=== PATIENT | female | born 1960 ===

== ENCOUNTER 2024-10-26 14:57 | Outpatient (AMB) | payer MEDICARE, SELFPAY | END 2024-10-26 15:05 | disposition home or self-care (01) | LOC: HO.HMGAL 14:57 | PROVIDERS: PCP Internal Medicine; Visit Provider Registered Nurse Emergency | DX: J30.89 Other allergic rhinitis (principal) | CPT/HCPCS: 95117; 95165 ==

== ENCOUNTER 2024-12-13 10:50 | Outpatient (AMB) | payer MEDICARE, SELFPAY | END 2024-12-13 11:02 | disposition home or self-care (01) | LOC: HO.HMGAL 10:50 | PROVIDERS: PCP Internal Medicine; Visit Provider Registered Nurse Emergency | DX: J30.89 Other allergic rhinitis (principal) | CPT/HCPCS: 95117; 95165 ==

== ENCOUNTER 2025-01-17 09:08 | Outpatient (AMB) | payer MEDICARE, SELFPAY ==
--- OUTSIDE RECORDS SUMMARY | 2025-01-13 23:59 | XMS_ITS | Continuity of Care Document ---
Author Organization [facility] Address [address] [place] [address] [address] [place] [address]- Care Team Providers Care Bellman Driver Name Role Phone Verónica DELGADO, Manpreet Osborne Primary Care Physician Encounter [facility] [place] Date(s): 10/14/24 - 01/13/[address] [place], [place] [address] Attending Physician: Myrna Box NP Encounter Type: Pre Office Visit Allergies, Adverse Reactions, Alerts Substance Criticality Severity Reaction Reaction Severity Status nitrofurantoin vomiting , diarrhea Active Medications amlodipine-benazepril 5 mg-20 mg oral capsule 1 capsule, By Mouth, Daily in AM, 0 Refills, Maintenance, 12/31/24 2:41:00 PM EDT, Partial fill upon patient request if the prescription is for a schedule II opioid drug. Start Date: 12/31/24 Status: Ordered Medication Dispense Status: Completed Total Allowed Fills: 1 Fills Dispensed: 0 atorvastatin 40 mg oral tablet 1 tablet = 40 mg, By Mouth, Daily at bedtime, 0 Refills, Maintenance, 11/28/22 6:19:00 AM EDT, Partial fill upon patient request if the prescription is for a schedule II opioid drug. Start Date: 11/28/22 Status: Ordered Medication Dispense Status: Completed Total Allowed Fills: 1 Fills Dispensed: 0 Calcium And Vitamin D Combination By Mouth, Daily, 0 Refills, Maintenance, 12/27/19 7:34:00 AM EDT Start Date: 12/27/19 Status: Ordered Medication Dispense Status: Completed Total Allowed Fills: 1 Fills Dispensed: 0 Coque 10 Coque 10, Refills 0, Maintenance, 12/27/19 7:35:00 AM EDT, Supply Start Date: 12/27/19 Status: Ordered Medication Dispense Status: Completed Total Allowed Fills: 1 Fills Dispensed: 0 D3 25 mcg (1000 intl units) oral capsule 1 capsule = 25 mcg, By Mouth, Daily, 0 Refills, Maintenance, 12/31/24 2:43:00 PM EDT, Partial fill upon patient request if the prescription is for a schedule II opioid drug. Start Date: 12/31/24 Status: Ordered Medication Dispense Status: Completed Total Allowed Fills: 1 Fills Dispensed: 0 levothyroxine 0.025 mg oral tablet 1 tablet = 25 mcg, By Mouth, Daily, # 90 tablet, 3 Refills, Maintenance, 02/16/24 8:25:00 AM EST, [facility]/pharmacy #[id number], 148.7, cm, 07/17/23 8:13:00 EDT, Height, 58.6, kg, 01/10/23 19:37:00 EDT, Dry Weight Start Date: 02/16/24 Status: Ordered Medication Dispense Status: Completed Quantity: 90.0 Unit: tablet Total Allowed Fills: 4 Fills Dispensed: 0 Probiotic Formula By Mouth, Daily, 0 Refills, Maintenance, 12/27/19 7:34:00 AM EDT Start Date: 12/27/19 Status: Ordered Medication Dispense Status: Completed Total Allowed Fills: 1 Fills Dispensed: 0 Social History Social History Type Response Sexual Gender identity: Fem rose. Preferred pronoun: She/Her/Hers. Smoking Status Former smoker, quit more than 30 days ago; Type: Cigarettes; Other: Quit 33 years ago; Number of years: 12; entered on: 09/27/21 Sex Sex Representation Female (finding) Patient Care team information Care Team Personnel Name: Joya Brothers RN Position: S RN Member Role: Primary Care Nurse Name: Cynthia Basilio RN Position: [facility] RN Member Role: Primary Care Nurse Name: Manpreet Sanches MD Position: S Outreach Member Role: PCP Address: [address] Telecom: Name: Mayra Nielsen RN Position: [facility] RN Member Role: Primary Care Nurse Name: Nona Lindquist RN Position: [facility] RN Member Role: Primary Care Nurse Name: Marianne Rivera RN Position: [facility] RN Member Role: Primary Care Nurse Name: Emiliana Castillo RN Position: [facility] RN Member Role: Primary Care Nurse Name: Cristiano Waller RN Position: [facility] RN Member Role: Primary Care Nurse Name: Pat Lanier RN Position: [facility] ED RN W/OE and Tasks Member Role: Primary Care Nurse Care Team Related Persons Name: JOHN JOHNSON Name: ABRAN MITCHELL Insurance Providers Guarantor name: PETERSON MITCHELL Health Plan Information #: 1 Payer: MEDICARE B Payer Identifier: Member Number: [id number] Group Number: Subscriber Identifier: [id number] Relationship to Subscriber: self Coverage Type: NA Coverage Verification Date: NA Telecom: NA Address: Health Plan Information #: 2 Payer: [employer] SECONDARY ONLY Payer Identifier: NA Member Number: [id number] Group Number: [id number] Subscriber Identifier: Relationship to Subscriber: self Coverage Type: Medicare Other Coverage Verification Date: Telecom: Address:
--- OUTSIDE RECORDS SUMMARY | 2025-01-17 09:51 | XMS_ITS | Data Portability ---
Author Organization [facility], Main Office Address [address] [place] [address] Care Team Providers Care Lift Team Technician Name Role Phone LUCY SANCHES Primary Care Provider SARA WHITMAN Senior Mechanical Technician ZAHEER LUNDBERG Soil Sampler [phone] LAURA TODD Cornetist [facility] Portable Irrigation Operator [phone] HANNAH DICKENS Referring Provider [phone] [facility] (ALLREFERRALS) Orthopedic Surgeon CRYSTAL BUSH Referring Provider [phone] LEXY WELSH Referring Provider [phone] Assessment Encounter Date Assessment Date Assessment LastModified by Organization Details LastModified Time 01/13/2024 01/13/2024 She gets recurrent sty's on the lower lid of her left eye. They resolve on their own with warm compresses. She will bring this up to her eye doctor next time she sees him. amy Not available 01/13/2024 12:59:36 Plan of Treatment Reminders Order Date Submit Date Provider Last Modified By Organization Details Last Modified Time Details Appointments FOLL OW UP 2025 10:30A M Lucy justice MD Not available Not available Not available Lab PT/P TTshavon ma 2024 025 [facility] (Centralized Electronic Ordering - All Locations), Patient Can Go To The Location Of Their Choice, [id number] 12/30/2024 08:08:22 cristin bain, octavio dobbins 2024 [facility] (Centralized Electronic Ordering - All Locations), Patient Can Go To The Location Of Their Choice, 12/30/2024 08:08:22 CBC w/ auto diff 2024 025 [facility] (Centralized Electronic Ordering - All Locations), Patient Can Go To The Location Of Their Choice, 12/30/2024 08:08:21 CMP, seru m or plas ma 2024 025 [facility] (Centralized Electronic Ordering - All Locations), Patient Can Go To The Location Of Their Choice, 12/30/2024 08:08:21 TSH + free T4, seru m 2023 024 [facility] (Centralized Electronic Ordering - All Locations), Patient Can Go To The Location Of Their Choice, 01/13/2024 12:56:19 lipi d nathaniel l, seru m 2023 024 [facility] (Centralized Electronic Ordering - All Locations), Patient Can Go To The Location Of Their Choice, 08/06/2023 06:08:08 CMP, seru m or plas ma 2023 024 [facility] (Centralized Electronic Ordering - All Locations), Patient Can Go To The Location Of Their Choice, 08/06/2023 06:08:08 CBC w/ auto diff 2023 024 [facility] (Centralized Electronic Ordering - All Locations), Patient Can Go To The Location Of Their Choice, 08/06/2023 06:08:07 Referral vasc ular surg ayan refe rral - Bila mesha l vari cose vein s 2024 [facility], [address] [facility] [address], [place], [address], 12/29/2024 11:44:[address] refe rral - Need s colo n canc er scre enin g 2024 025 [email or web address] [facility], [address], [place], [address], 12/31/2024 11:15:34 colo n & rect al surg ayan refe rral 2024 025 [email or web address] Maria G Manzo MD, [address] [place] [address] , [place] [address], [place], [address], 10/04/2024 10:42:19 Procedures colo nosc opy scre enin g (PRO C) 2024 025 [email or web address] In-Office Order, Internal Use Only DO Not Attach Compendium DO Not Attach Compendium, Do Not Delete/merge, [id number] 12/28/2024 16:16:04 Surgeries None hema rded . Imaging elec troc ardi ogra m 2022 023 [email or web address] In-Office Order, Internal Use Only DO Not Attach Compendium DO Not Attach Compendium, Do Not Delete/merge, [id number] 01/28/2023 11:24:31 Medication Orders amlo dipi ne 5 mg-b enaz epri l 20 mg caps ule 2024 025 [id number], [address], [place], [address], 12/28/2024 17:51:43 hydr ocor tiso ne 2.5 % topi tera crea m with donavan ligia appl icat or 2024 025 [id number], [address], [place], [address], 12/28/2024 15:20:12 amlo dipi ne 5 mg-b enaz epri l 10 mg caps ule 2022 023 [email or web address] [id number], [address], [place], [address], 12/28/2024 17:45:58 ator vast atin 40 mg tabl et 2022 023 [id number], [address], [place], [address], 01/28/2023 12:26:32 Patient TargetsNo targets recorded. Patient Instructions Encounter Date Encounter Id Patient Instructions Last Modified By Organization Details Last Modified Time 01/28/2023 [id number] high blood pressure: care instructions [email or web address] Not available 01/28/2023 11:07:57 learning about high blood pressure [email or web address] Not available 01/28/2023 11:07:57 07/31/2023 [id number] high blood pressure: care instructions [email or web address] Not available 07/31/2023 10:40:23 learning about high blood pressure [email or web address] Not available 07/31/2023 10:40:23 high cholesterol: care instructions [email or web address] Not available 07/31/2023 10:40:23 preventing falls: care instructions [email or web address] Not available 07/31/2023 10:33:04 well visit, over 65: care instructions [email or web address] Not available 07/31/2023 10:33:04 01/13/2024 [id number] high blood pressure: care instructions [email or web address] Not available 01/13/2024 11:00:53 learning about high blood pressure [email or web address] Not available 01/13/2024 11:00:53 high cholesterol: care instructions [email or web address] Not available 01/13/2024 11:00:53 09/21/2024 [id number] hemorrhoids: care instructions pmadden Not available 09/21/2024 09:53:54 Patient will follow up and keep appointment as scheduled. [email or web address] Not available 09/21/2024 09:56:29 12/28/2024 [id number] hypercalcemia: care instructions [email or web address] Not available 12/28/2024 15:45:58 preventing falls: care instructions acennerazzo Not available 12/28/2024 15:45:58 well visit, over 65: care instructions acennerazzo Not available 12/28/2024 15:45:58 high cholesterol: care instructions acennerazzo Not available 12/28/2024 15:45:58 varicose veins: care instructions acennerazzo Not available 12/28/2024 16:06:37 hearing loss: care instructions acennerazzo Not available 12/28/2024 15:45:58 learning about colon cancer acennerazzo Not available 12/28/2024 15:57:36 high blood pressure: care instructions [email or web address] Not available 12/28/2024 15:45:58 learning about high blood pressure acennerazzo Not available 12/28/2024 15:45:58 Reason for Referral Colon & Rectal Surgeon Refer ral for Internal hemorrhoids Referring Physician: Holden Moreira, Internal Medicine, Encounter Date: 09/21/2024 Senior Mechanical Technician Referral for Screening for malignant neoplasm of colon Needs colon cancer screening Referring Physician: Lucy Sanches [facility], Encounter Date: 12/28/2024 Vascular Surgeon Referral fo r Varicose veins of lower extremity Bilateral varicose veins Referring Physician: Lucy Sanches [facility], Encounter Date: 12/28/2024 Results Created Date Observation Date Name Description Value Unit Range Abnormal Flag Note LastModifiedBy Organization Detail LastModifiedTime 08/05/19 24 08/05/2023 CBC WITH DIFFE RENTI AL/PL ATELE T WBC 7.5 x10e3 /uL 3.4-10 .8 Not Available [facility] ([facility]) [address] [place], [address], 08/06/2023 06:08:07 08/05/19 24 08/05/2023 CBC WITH DIFFE RENTI AL/PL ATELE T RBC 4.58 x10e6 /uL 3.77-5 .28 Not Available [facility] ([facility]) [address] [place], [address], 08/06/2023 06:08:07 08/05/19 24 08/05/2023 CBC WITH DIFFE RENTI AL/PL ATELE T hemoglobin 12.5 g/dL 11.1-1 5.9 Not Available [facility] ([facility]) [address] [facility], [place], [address], 08/06/2023 06:08:07 08/05/19 24 08/05/2023 CBC WITH DIFFE RENTI AL/PL ATELE T hematocrit 40.7 % 34.0-4 6.6 Not Available [facility] ([facility]) [address] [facility], [place], [address], 08/06/2023 06:08:07 08/05/19 24 08/05/2023 CBC WITH DIFFE RENTI AL/PL ATELE T MCV 89 fL 79-97 Not Available [facility] ([facility]) [address] [facility], [place], [address], 08/06/2023 06:08:07 08/05/19 24 08/05/2023 CBC WITH DIFFE RENTI AL/PL ATELE T MCH 27.3 pg 26.6-3 3.0 Not Available [facility] ([facility]) [address] [facility], [place], [address], 08/06/2023 06:08:07 08/05/19 24 08/05/2023 CBC WITH DIFFE RENTI AL/PL ATELE T MCHC 30.7 g/dL 31.5-3 5.7 below low normal Not Available [facility] ([facility]) [address] [facility], [place], [address], 08/06/2023 06:08:07 08/05/19 24 08/05/2023 CBC WITH DIFFE RENTI AL/PL ATELE T RDW 13.8 % 11.7-1 5.4 Not Available [facility] ([facility]) [address] [facility], [place], [address], 08/06/2023 06:08:07 08/05/19 24 08/05/2023 CBC WITH DIFFE RENTI AL/PL ATELE T platelets 223 x10e3 /uL 150-45 0 Not Available [facility] ([facility]) [address], [place], [address], 08/06/2023 06:08:07 08/05/19 24 08/05/2023 CBC WITH DIFFE RENTI AL/PL ATELE T neutrophils 54 % not estab. Not Available [facility] ([facility]) [address] [facility], [place], [address], 08/06/2023 06:08:07 08/05/19 24 08/05/2023 CBC WITH DIFFE RENTI AL/PL ATELE T lymphs 37 % not estab. Not Available [facility] ([facility]) [address] [facility], [place], [address], 08/06/2023 06:08:07 08/05/19 24 08/05/2023 CBC WITH DIFFE RENTI AL/PL ATELE T monocytes 6 % not estab. Not Available [facility] ([facility]) [address] [facility], [place], [address], 08/06/2023 06:08:07 08/05/19 24 08/05/2023 CBC WITH DIFFE RENTI AL/PL ATELE T eos 2 % not estab. Not Available [facility] ([facility]) [address] [facility], [place], [address], 08/06/2023 06:08:07 08/05/19 24 08/05/2023 CBC WITH DIFFE RENTI AL/PL ATELE T basos 1 % not estab. Not Available [facility] ([facility]) [address] [facility], [place], [address], 08/06/2023 06:08:07 08/05/19 24 08/05/2023 CBC WITH DIFFE RENTI AL/PL ATELE T immature cells NON CLINICAL ADVISOR Not Available [facility] ([facility]) [address] [facility], [place], [address], 08/06/2023 06:08:07 08/05/19 24 08/05/2023 CBC WITH DIFFE RENTI AL/PL ATELE T neutrophils (absolute) 4.0 x10e3 /uL 1.4-7. 0 Not Available [facility] ([facility]) [address] [facility], [place], [address], 08/06/2023 06:08:07 08/05/19 24 08/05/2023 CBC WITH DIFFE RENTI AL/PL ATELE T lymphs (absolute) 2.8 x10e3 /uL 0.7-3. 1 Not Available [facility] ([facility]) [address] [facility], [place], [address], 08/06/2023 06:08:07 08/05/19 24 08/05/2023 CBC WITH DIFFE RENTI AL/PL ATELE T monocytes(ab solute) 0.5 x10e3 /uL 0.1-0. 9 Not Available [facility] ([facility]) [address] [facility], [place], [address], 08/06/2023 06:08:07 08/05/19 24 08/05/2023 CBC WITH DIFFE RENTI AL/PL ATELE T eos (absolute) 0.1 x10e3 /uL 0.0-0. 4 Not Available [facility] ([facility]) [address] [facility], [place], [address], 08/06/2023 06:08:07 08/05/19 24 08/05/2023 CBC WITH DIFFE RENTI AL/PL ATELE T baso (absolute) 0.1 x10e3 /uL 0.0-0. 2 Not Available [facility] ([facility]) [address] [place], [address], 08/06/2023 06:08:07 08/05/19 24 08/05/2023 CBC WITH DIFFE RENTI AL/PL ATELE T immature granulocytes 0 % not estab. Not Available [facility] ([facility]) [address] [place], [address], 08/06/2023 06:08:07 08/05/19 24 08/05/2023 CBC WITH DIFFE RENTI AL/PL ATELE T immature grans (abs) 0.0 x10e3 /uL 0.0-0. 1 Not Available [facility] ([facility]) [address] [facility], [place], [address], 08/06/2023 06:08:07 08/05/19 24 08/05/2023 CBC WITH DIFFE RENTI AL/PL ATELE T NRBC NON CLINICAL ADVISOR Not Available [facility] ([facility]) [address] [facility], [place], [address], 08/06/2023 06:08:07 08/05/19 24 08/05/2023 CBC WITH DIFFE RENTI AL/PL ATELE T hematology comments: NON CLINICAL ADVISOR Not Available [facility] ([facility]) [address] [facility], [place], [address], 08/06/2023 06:08:07 08/05/19 24 08/05/2023 COMP. METAB OLIC PANEL (14) glucose 92 mg/dL 70-99 Not Available [facility] ([facility]) [address] [facility], [place], [address], 08/06/2023 06:08:08 08/05/19 24 08/05/2023 COMP. METAB OLIC PANEL (14) BUN 15 mg/dL 8-27 Not Available [facility] ([facility]) [address] [facility], [place], [address], 08/06/2023 06:08:08 08/05/19 24 08/05/2023 COMP. METAB OLIC PANEL (14) creatinine 0.81 mg/dL 0.57-1 .00 Not Available [facility] ([facility]) [address] [facility], [place], [address], 08/06/2023 06:08:08 08/05/19 24 08/05/2023 COMP. METAB OLIC PANEL (14) eGFR 81 mL/mi n/1.7 3 >59 Not Available [facility] ([facility]) [address] [facility] [place], [address], 08/06/2023 06:08:08 08/05/19 24 08/05/2023 COMP. METAB OLIC PANEL (14) BUN/creatini ne ratio 19 - Not Available [facility] ([facility]) [address] [facility] [place], [address], 08/06/2023 06:08:08 08/05/19 24 08/05/2023 COMP. METAB OLIC PANEL (14) sodium 142 mmol/ L 134-14 4 Not Available [facility] ([facility]) [address] [facility], [place], [address], 08/06/2023 06:08:08 08/05/19 24 08/05/2023 COMP. METAB OLIC PANEL (14) potassium 4.3 mmol/ L 3.5-5. 2 Not Available [facility] ([facility]) [address] [facility] [place], [address], 08/06/2023 06:08:08 08/05/19 24 08/05/2023 COMP. METAB OLIC PANEL (14) chloride 106 mmol/ L 96-106 Not Available [facility] ([facility]) [address] [facility] [place], [address], 08/06/2023 06:08:08 08/05/19 24 08/05/2023 COMP. METAB OLIC PANEL (14) carbon dioxide, total 23 mmol/ L - Not Available [facility] ([facility]) [address] [facility] [place], [address], 08/06/2023 06:08:08 08/05/19 24 08/05/2023 COMP. METAB OLIC PANEL (14) calcium 9.4 mg/dL 8.7-10 .3 Not Available [facility] ([facility]) [address] [place], [address], 08/06/2023 06:08:08 08/05/19 24 08/05/2023 COMP. METAB OLIC PANEL (14) protein, total 6.1 g/dL 6.0-8. 5 Not Available [facility] ([facility]) [address] [place], [address], 08/06/2023 06:08:08 08/05/19 24 08/05/2023 COMP. METAB OLIC PANEL (14) albumin 4.1 g/dL 3.9-4. 9 Not Available [facility] ([facility]) [address] [place], [address], 08/06/2023 06:08:08 08/05/19 24 08/05/2023 COMP. METAB OLIC PANEL (14) globulin, total 2.0 g/dL 1.5-4. 5 Not Available [facility] ([facility]) [address] [place], [address], 08/06/2023 06:08:08 08/05/19 24 08/05/2023 COMP. METAB OLIC PANEL (14) A/G ratio 2.1 1.2-2. 2 Not Available [facility] ([facility]) [address] [place], [address], 08/06/2023 06:08:08 08/05/19 24 08/05/2023 COMP. METAB OLIC PANEL (14) bilirubin, total 0.4 mg/dL 0.0-1. 2 Not Available [facility] ([facility]) [address] [place], [address], 08/06/2023 06:08:08 08/05/19 24 08/05/2023 COMP. METAB OLIC PANEL (14) alkaline phosphatase 69 IU/L 44-121 Not Available [facility] ([facility]) [address] [place], [address], 08/06/2023 06:08:08 08/05/19 24 08/05/2023 COMP. METAB OLIC PANEL (14) AST (SGOT) 13 IU/L 0-40 Not Available [facility] ([facility]) [address] [facility] [place], [address], 08/06/2023 06:08:08 08/05/19 24 08/05/2023 COMP. METAB OLIC PANEL (14) ALT (SGPT) 12 IU/L 0-32 Not Available [facility] ([facility]) [address] [facility] [place], [address], 08/06/2023 06:08:08 08/05/19 24 08/05/2023 LIPID PANEL cholesterol, total 178 mg/dL 100-19 9 Not Available [facility] ([facility]) [address] [place], [address], 08/06/2023 06:08:08 08/05/19 24 08/05/2023 LIPID PANEL triglyceride s 110 mg/dL 0-149 Not Available [facility] ([facility] [address] [facility] [place], [address], 08/06/2023 06:08:08 08/05/19 24 08/05/2023 LIPID PANEL HDL cholesterol 81 mg/dL >39 Not Available [facility] ([facility]) [address] [place], [address], 08/06/2023 06:08:08 08/05/19 24 08/05/2023 LIPID PANEL VLDL cholesterol tera 19 mg/dL 5-40 Not Available [facility] ([facility]) [address] [facility] [place], [address], 08/06/2023 06:08:08 08/05/19 24 08/05/2023 LIPID PANEL LDL chol calc (nih) 78 mg/dL 0-99 Not Available [facility] ([facility]) [address], [place], [address], 08/06/2023 06:08:08 08/05/19 24 08/05/2023 LIPID PANEL comment: NON CLINICAL ADVISOR Not Available [facility] ([facility]) [address] [facility], [place], [address], 08/06/2023 06:08:08 12/30/19 25 12/30/2024 CMP14 +EGFR glucose 95 mg/dL 70-99 normal Not Available [facility] ([facility]) [address] [facility], [place], [address], 12/30/2024 08:08:20 12/30/1912/30/2024 CMP14 +EGFR BUN 16 mg/dL 8-27 normal Not Available [facility] ([facility]) [address] [facility], [place], [address], 12/30/2024 08:08:20 12/30/1912/30/2024 CMP14 +EGFR creatinine 0.77 mg/dL 0.57-1 .00 normal Not Available [facility] ([facility]) [address] [facility], [place], [address], 12/30/2024 08:08:20 12/30/19 25 12/30/2024 CMP14 +EGFR eGFR 85 mL/mi n/1.7 3 >59 normal Not Available [facility] ([facility]) [address] [facility] [place], [address], 12/30/2024 08:08:20 12/30/1912/30/2024 CMP14 +EGFR BUN/creatini ne ratio 21 12-28 normal Not Available [facility] ([facility]) [address] [facility], [place], [address], 12/30/2024 08:08:20 12/30/19 25 12/30/2024 CMP14 +EGFR sodium 141 mmol/ L 134-14 4 normal Not Available [facility] ([facility]) [address] [facility], [place], [address], 12/30/2024 08:08:20 12/30/1912/30/2024 CMP14 +EGFR potassium 4.2 mmol/ L 3.5-5. 2 normal Not Available [facility] ([facility]) [address] [facility], [place], [address], 12/30/2024 08:08:20 12/30/1912/30/2024 CMP14 +EGFR chloride 103 mmol/ L 96-106 normal Not Available [facility] ([facility]) [address] [facility] [place], [address], 12/30/2024 08:08:20 12/30/1912/30/2024 CMP14 +EGFR carbon dioxide, total 24 mmol/ L 20-29 normal Not Available [facility] ([facility]) [address] [facility], [place], [address], 12/30/2024 08:08:20 12/30/1912/30/2024 CMP14 +EGFR calcium 9.8 mg/dL 8.7-10 .3 normal Not Available [facility] ([facility]) [address] [facility], [place], [address], 12/30/2024 08:08:20 12/30/1912/30/2024 CMP14 +EGFR protein, total 6.5 g/dL 6.0-8. 5 normal Not Available [facility] ([facility]) [address] [facility] [place], [address], 12/30/2024 08:08:20 12/30/1912/30/2024 CMP14 +EGFR albumin 4.2 g/dL 3.9-4. 9 normal Not Available [facility] ([facility]) [address] [facility] [place], [address], 12/30/2024 08:08:20 12/30/1912/30/2024 CMP14 +EGFR globulin, total 2.3 g/dL 1.5-4. 5 Not Available [facility] ([facility]) [address] [facility], [place], [address], 12/30/2024 08:08:20 12/30/1912/30/2024 CMP14 +EGFR bilirubin, total 0.5 mg/dL 0.0-1. 2 normal Not Available [facility] ([facility]) [address] [facility], [place], [address], 12/30/2024 08:08:20 12/30/1912/30/2024 CMP14 +EGFR alkaline phosphatase 76 IU/L 49-135 normal Not Available [facility] ([facility] [address] [facility], [place], [address], 12/30/2024 08:08:20 12/30/1912/30/2024 CMP14 +EGFR AST (SGOT) 16 IU/L 0-40 normal Not Available [facility] ([facility]) [address] [facility], [place], [address], 12/30/2024 08:08:20 12/30/1912/30/2024 CMP14 +EGFR ALT (SGPT) 14 IU/L 0-32 normal Not Available [facility] ([facility]) [address] [facility], [place], [address], 12/30/2024 08:08:20 12/30/1912/30/2024 CBC WITH DIFFE RENTI AL/PL ATELE T WBC 9.3 x10e3 /uL 3.4-10 .8 normal Not Available [facility] ([facility]) [address] [facility], [place], [address], 12/30/2024 08:08:21 12/30/19 25 12/30/2024 CBC WITH DIFFE RENTI AL/PL ATELE T RBC 4.63 x10e6 /uL 3.77-5 .28 normal Not Available [facility] ([facility]) [address] [place], [address], 12/30/2024 08:08:21 12/30/1912/30/2024 CBC WITH DIFFE RENTI AL/PL ATELE T hemoglobin 13.6 g/dL 11.1-1 5.9 normal Not Available [facility] ([facility]) [address] [facility], [place], [address], 12/30/2024 08:08:21 12/30/1912/30/2024 CBC WITH DIFFE RENTI AL/PL ATELE T hematocrit 41.8 % 34.0-4 6.6 normal Not Available [facility] ([facility]) [address] [place], [address], 12/30/2024 08:08:21 12/30/1912/30/2024 CBC WITH DIFFE RENTI AL/PL ATELE T MCV 90 fL 79-97 normal Not Available [facility] ([facility]) [address] [place], [address], 12/30/2024 08:08:21 12/30/1912/30/2024 CBC WITH DIFFE RENTI AL/PL ATELE T MCH 29.4 pg 26.6-3 3.0 normal Not Available [facility] ([facility]) [address] [place], [address], 12/30/2024 08:08:21 12/30/1912/30/2024 CBC WITH DIFFE RENTI AL/PL ATELE T MCHC 32.5 g/dL 31.5-3 5.7 normal Not Available [facility] ([facility]) [address] [place], [address], 12/30/2024 08:08:21 12/30/19 25 12/30/2024 CBC WITH DIFFE RENTI AL/PL ATELE T RDW 12.0 % 11.7-1 5.4 Not Available [facility] ([facility]) [address] [facility], [place], [address], 12/30/2024 08:08:21 12/30/1912/30/2024 CBC WITH DIFFE RENTI AL/PL ATELE T platelets 256 x10e3 /uL 150-45 0 normal Not Available [facility] ([facility]) [address] [facility], [place], [address], 12/30/2024 08:08:21 12/30/1912/30/2024 CBC WITH DIFFE RENTI AL/PL ATELE T neutrophils 62 % not estab. normal Not Available [facility] ([facility]) [address] [facility], [place], [address], 12/30/2024 08:08:21 12/30/1912/30/2024 CBC WITH DIFFE RENTI AL/PL ATELE T lymphs 29 % not estab. normal Not Available [facility] ([facility]) [address] [facility], [place], [address], 12/30/2024 08:08:21 12/30/1912/30/2024 CBC WITH DIFFE RENTI AL/PL ATELE T monocytes 6 % not estab. normal Not Available [facility] ([facility]) [address] [facility], [place], [address], 12/30/2024 08:08:21 12/30/1912/30/2024 CBC WITH DIFFE RENTI AL/PL ATELE T eos 2 % not estab. normal Not Available [facility] ([facility]) [address] [facility], [place], [address], 12/30/2024 08:08:21 12/30/1912/30/2024 CBC WITH DIFFE RENTI AL/PL ATELE T basos 1 % not estab. normal Not Available [facility] ([facility]) [address] [facility], [place], [address], 12/30/2024 08:08:21 12/30/19 25 12/30/2024 CBC WITH DIFFE RENTI AL/PL ATELE T immature cells NON CLINICAL ADVISOR Not Available [facility] ([facility]) [address] [facility], [place], [address], 12/30/2024 08:08:21 12/30/19 25 12/30/2024 CBC WITH DIFFE RENTI AL/PL ATELE T neutrophils (absolute) 5.8 x10e3 /uL 1.4-7. 0 normal Not Available [facility] ([facility]) [address] [place], [address], 12/30/2024 08:08:21 12/30/19 25 12/30/2024 CBC WITH DIFFE RENTI AL/PL ATELE T lymphs (absolute) 2.7 x10e3 /uL 0.7-3. 1 normal Not Available [facility] ([facility]) [address] [place], [address], 12/30/2024 08:08:21 12/30/19 25 12/30/2024 CBC WITH DIFFE RENTI AL/PL ATELE T monocytes(ab solute) 0.6 x10e3 /uL 0.1-0. 9 normal Not Available [facility] ([facility]) [address] [place], [address], 12/30/2024 08:08:21 12/30/19 25 12/30/2024 CBC WITH DIFFE RENTI AL/PL ATELE T eos (absolute) 0.2 x10e3 /uL 0.0-0. 4 normal Not Available [facility] ([facility]) [address] [place], [address], 12/30/2024 08:08:21 12/30/19 25 12/30/2024 CBC WITH DIFFE RENTI AL/PL ATELE T baso (absolute) 0.1 x10e3 /uL 0.0-0. 2 normal Not Available [facility] ([facility]) [address] [facility], [place], [address], 12/30/2024 08:08:21 12/30/1912/30/2024 CBC WITH DIFFE RENTI AL/PL ATELE T immature granulocytes 0 % not estab. Not Available [facility] ([facility]) [address] [facility], [place], [address], 12/30/2024 08:08:21 12/30/19 25 12/30/2024 CBC WITH DIFFE RENTI AL/PL ATELE T immature grans (abs) 0.0 x10e3 /uL 0.0-0. 1 Not Available [facility] ([facility]) [address] [facility], [place], [address], 12/30/2024 08:08:21 12/30/1912/30/2024 CBC WITH DIFFE RENTI AL/PL ATELE T NRBC NON CLINICAL ADVISOR Not Available [facility] ([facility]) [address] [facility], [place], [address], 12/30/2024 08:08:21 12/30/1912/30/2024 CBC WITH DIFFE RENTI AL/PL ATELE T hematology comments: NON CLINICAL ADVISOR Not Available [facility] ([facility]) [address] [facility], [place], [address], 12/30/2024 08:08:21 12/30/1912/30/2024 LIPID PANEL cholesterol, total 202 mg/dL 100-19 9 above high normal Not Available [facility] ([facility]) [address] [facility], [place], [address], 12/30/2024 08:08:22 12/30/1912/30/2024 LIPID PANEL triglyceride s 117 mg/dL 0-149 normal Not Available [facility] ([facility]) [address] [place], [address], 12/30/2024 08:08:22 12/30/19 25 12/30/2024 LIPID PANEL HDL cholesterol 80 mg/dL >39 normal Not Available [facility] ([facility]) [address] [place], [address], 12/30/2024 08:08:22 12/30/19 25 12/30/2024 LIPID PANEL VLDL cholesterol tera 20 mg/dL 5-40 Not Available [facility] ([facility]) [address] [place], [address], 12/30/2024 08:08:22 12/30/1912/30/2024 LIPID PANEL LDL chol calc ([facility]) 102 mg/dL 0-99 above high normal Not Available [facility] ([facility]) [address] [facility], [place], [address], 12/30/2024 08:08:22 12/30/1912/30/2024 LIPID PANEL LDL calc comment: NON CLINICAL ADVISOR Not Available [facility] ([facility]) [address] [place], [address], 12/30/2024 08:08:22 12/30/1912/30/2024 PT AND PTT INR 0.9 0.9-1. 2 Refer ence inter sharath is for non-a ntico agula amari patie nts. Sugge sted INR thera peuti c range for Vitam in K antag onist thera py: Stand demond Dose (mode rate inten sity thera peuti c range ): 2.0 - 3.0 Highe r inten sity thera peuti c range 2.5 - 3.5 Not Available [facility] ([facility]) [address] [place], [address], 12/30/2024 08:08:22 12/30/19 25 12/30/2024 PT AND PTT prothrombin time 9.7 sec 9.1-12 .0 normal Not Available [facility] ([facility]) [address] [facility], [place], [address], 12/30/2024 08:08:22 12/30/1912/30/2024 PT AND PTT APTT 27 sec 24-33 normal This test has not been valid ated for monit oring unfra ction ated hepar in thera py. aPTT- based thera peuti c range s for unfra ction ated hepar in thera py have not been estab kinza strange For gener al guide lines on Hepar in monit oring , refer to the [facility] D[facility] tory of Jenn avila. Not Available [facility] ([facility]) [address] [facility], [place], [address], 12/30/2024 08:08:22 01/10/20 23 01/07/2023 MAMMO , scree sheila, digit al, bilat eral No observ ation record ed. [email or web address] [facility] [address], [place], [address], 01/09/2023 13:46:49 01/29/20 23 01/28/2023 elect rocar diogr am No observ ation record ed. [email or web address] In-Office Order Internal Use Only DO Not Attach Compendium DO Not Attach Compendium, Do Not Delete/merge, [id number] 01/28/2023 16:43:22 01/29/20 23 elect rocar diogr am No observ ation record ed. [email or web address] In-Office Order Internal Use Only DO Not Attach Compendium DO Not Attach Compendium, Do Not Delete/merge, [id number] 01/28/2023 16:43:22 01/09/20 24 01/09/2024 MAMMO , scree sheila, digit al, bilat eral Bilate ral full field digita l breast tomosy nthesi s perfor med on a Hologi c Seleni a dimens ion with I CAD second look 7.2-H comput er aided detect ion dated Novemb er 2023. Compar elva films are from Octobe r 2022 and Octobe r 2020. HISTOR Y: Breast cancer screen ing. FINDIN GS: There are scatte red areas of fibrog landul ar densit y. No suspic ious mass, nodule , patricia ectura l distor tion or groupe d microc alcifi cation s are seen. No skin thicke sheila or nipple retrac tion is apprec iated. IMPRES BUTCH: No mammog raphic eviden ce of malign natty and no signif icant interv al change . Recomm endati on: Routin e annual mammog raphic screen ing. Examin ation [id number] and G0202. BI-RAD S one negati ve. Letter L3. Thank you for marinei chiara me to partic ipate in the care of this rakel t. WSN: [id number] Orderi ng Physic yashira: Lucy Garcia Dictat ed By: Phil Mason MD Dictat ed Date/T shabbir: 1:55 pm Review ed By: Phil Mason MD Signed By: Phil Mason MD Signed Date/T shabbir: 1:55 pm Transc ribed By: CSB Transc riptio n Date/T shabbir: 1:54 pm Birads : Patien t Class: Outpat ient [email or web address] [facility] (Outpt [facility]) [address] [facility], [place], [address], 01/12/2024 08:54:01 12/30/19 25 07/03/2023 DEXA, axial skele ton No observ ation record ed. [email or web address] Not Available 12/09 16:43:08 01/13/20 25 01/11/2025 MAMMO , scree sheila, digit al, bilat eral PROCED URE: MM Digita l Mammo Screen ing INDICA TION: Screen ing for breast cancer . No known palpab le abnorm alitie s. COMPAR ELVA: Prior mammog evin most recent ly dated 024. TECHNI QUE: Full-f ield digita l CC and MLO 3D tomosy nthesi s images of both breast s were acquir ed. Comput er-aid ed detect ion (CAD) was utiliz ed in the interp retati on of this study. DENSIT Y: There are scatte red areas of fibrog landul ar densit y. FINDIN GS: No suspic ious masses , suspic ious microc alcifi cation s, or areas of patricia ectura l distor tion are seen in either breast to sugges t malign natty. IMPRES BUTCH: No mammog raphic eviden ce of malign natty. RECOMM ENDATI ON: Annual mammog raphic screen ing BI-RAD S: 1 (Negat ryne) Lay letter mailed to rakel hardy WSN: [id number] Orderi ng Physic yashira: Lucy Garcia Dictat ed By: Rashad Eagle MD Dictat ed Date/T shabbir: 11:21 am Review ed By: Rashad Eagle MD Signed By: Rashad Eagle MD Signed Date/T shabbir: 11:21 am Transc ribed By: JUVENCIO Transc riptio n Date/T shabbir: 11:17 am Birads : Rakel hardy Class: Outpat ient [id number] [facility] ([facility]) [address] [place] [address], [address], 01/12/2025 13:47:35 Result Notes Documentation Provider Name and Address Organization Details Recorded Time Mammo, Screening, Digital, Bilateral : Bilateral full field digital breast tomosynthesis performed on a Hologic Vee dimension with I CAD second look 7.2-H computer aided detection dated January 09, 2024. Comparison films are from January 07, 2023 and December 31, 2020. HISTORY: Breast cancer screening. FINDINGS: There are scattered areas of fibroglandular density. No suspicious mass, nodule, architectural distortion or grouped microcalcifications are seen. No skin thickening or nipple retraction is appreciated. IMPRESSION: No mammographic evidence of malignancy and no significant interval change. Recommendation: Routine annual mammographic screening. Examination 79980 and G0202. BI-RADS one negative. Letter L3. Thank you for allowing me to participate in the care of this patient. WSN: [id number] Ordering Physician: Lucy Sanches Dictated By: Phil Mason MD Dictated Date/Time: 01/09/24 1:55 pm Reviewed By: Phil Mason MD Signed By: Phil Mason MD Signed Date/Time: 01/09/24 1:55 pm Transcribed By: JUVENCIO Consultant Teacher Date/Time: 01/09/24 1:54 pm Birads: Patient Class: Outpatient Francine Farr anton [facility] 01/12/2024 08:54:01 Mammo, Screening, Digital, Bilateral : PROCEDURE: MM Digital Mammo Screening INDICATION: Screening for breast cancer. No known palpable abnormalities. COMPARISON: Prior mammograms most recently dated 01/09/2024. TECHNIQUE: Full-field digital CC and MLO 3D tomosynthesis images of both breasts were acquired. Computer-aided detection (CAD) was utilized in the interpretation of this study. DENSITY: There are scattered areas of fibroglandular density. FINDINGS: No suspicious masses, suspicious microcalcifications, or areas of architectural distortion are seen in either breast to suggest malignancy. IMPRESSION: No mammographic evidence of malignancy. RECOMMENDATION: Annual mammographic screening BI-RADS: 1 (Negative) Lay letter mailed to patient WSN: [id number] Ordering Physician: Lucy Sanches Dictated By: Shadia Eagle MD Dictated Date/Time: 01/12/25 11:21 am Reviewed By: Shadia Eagle MD Signed By: Shadia Eagle MD Signed Date/Time: 01/12/25 11:21 am Transcribed By: JUVENCIO Consultant Teacher Date/Time: 01/12/25 11:17 am Birads: Patient Class: Outpatient Alma Duncan anton [facility] 01/12/2025 13:47:35 Problems Name Problem SNOMED Code Status Onset Date Resolution Date Notes Provider Name and Address Organization Details Recorded Time Geni orozco 915694095 Active Not Available [facility] 3 14:04:26 Cough [id number] Completed 11/06/2016 MARY KAY Dean [facility] 7 09:05:08 Body mass index 25-29 - overweig ht 526481790 Completed 07/29/2018 Sue Cisneros MA null, [facility] 9 09:06:19 Knee pain Active chondrom alacia patella; seen at [facility]; injected in 2022 Not Available [facility] 3 14:04:26 Adult health examinat ion Completed 200809/28/2013 RECORDED 11/23/19 09 11:20AM BY SRIDHAR NASH ON/SHAISTA Sanches MD [address] [facility] [address], [place], [address] , [facility] 6 19:33:17 Influenz a vaccine needed 05319088631 06 Completed 200909/28/2013 RECORDED 03/29/19 10 4:27PM BY SERENA JOSHI, OFFICE VISIT Lucy Sanches MD [address] [address], [place], [address] , [facility] 6 19:33:17 Influenz a vaccine needed 81218631145 06 Completed 200910/18/2013 RECORDED 03/29/19 10 4:27PM BY SERENA JOSHI, OFFICE VISIT Lucy Sanches MD [address] [address], [place], [address] , [facility] 6 19:33:17 Administ ration of bacteria l and viral vaccine Completed 200909/28/2013 RECORDED 09/28/19 10 9:19AM BY CRISS KHALIL, OFFICE VISIT Lucy Sanches MD [address] [address], [place], [address] , [facility] 6 19:33:17 Administ ration of bacteria l and viral vaccine Completed 200910/18/2013 RECORDED 09/28/19 10 9:19AM BY CRISS KHALIL, OFFICE VISIT Lucy Sanches MD [address] [address], [place], [address] , [facility] 6 19:33:17 Allergic rhinitis 55231185 Completed 201209/28/2013 RECORDED 04/01/19 13 10:02AM BY SRIDHAR CHRISTENSEN ON/SHAISTA Sanches MD [address], [place], [address] , [facility] 6 19:33:17 Candidia sis of skin and nails Completed 201209/28/2013 RECORDED 04/01/19 13 10:02AM BY SRIDHAR CHRISTENSEN ON/SHAISTA Sanches MD [address], [place], [address] , [facility] 6 19:33:17 Screenin g for malignan t neoplasm of colon Completed 201209/28/2013 RECORDED 04/01/19 13 10:02AM BY SRIDHAR CHRISTENSEN ON/SHAISTA Sanches MD [address], [place], [address] , [facility] 6 19:33:17 Depressi ve disorder 42315427 Completed 201209/28/2013 RECORDED 04/01/19 13 10:02AM BY SRIDHAR CHRISTENSEN/SHAISTA Sanches MD [address], [place], [address] , [facility] 6 19:33:17 Pain in limb 76967518 Completed 201209/28/2013 RECORDED 04/01/19 13 10:02AM BY SRIDHAR CHRISTENSEN/SHAISTA Sanches MD [address], [place], [address] , [facility] 6 19:33:17 Hypercho lesterol emia 76386010 Completed 201209/28/2013 RECORDED 04/01/19 13 10:01AM BY SRIDHAR CHRISTENSEN ON/ADDEN DUM Lucy Sanches MD [address], [place], [address] , [facility] 6 19:33:17 Pure hypercho lesterol emia 072749087 Completed 201209/28/2013 RECORDED 04/01/19 13 10:01AM BY SRIDHAR CHRISTENSEN ON/ADDEN DUM Lucy Sanches MD [address] [facility] [address], [place], [address] , [facility] 6 19:33:17 Essentia l hyperten butch 82613058 Completed 201209/28/2013 RECORDED 04/01/19 13 10:01AM BY SRIDHAR CHRISTENSEN ON/ADDEN DUM Jose Luis [facility] 7 09:05:12 Malaise and fatigue 388261005 Completed 201209/28/2013 RECORDED 04/01/19 13 10:01AM BY SRIDHAR CHRISTENSEN ON/ADDEN HAL Sanches MD [address] [facility] [address], [place], [address] , [facility] 6 19:33:17 Allergic rhinitis 16998119 Completed 201210/18/2013 RECORDED 04/01/19 13 10:02AM BY SRIDHAR CHRISTENSEN ON/ADDEN HAL Sanches MD [address] [facility] [address], [place], [address] , [facility] 6 19:33:17 Candidia sis of skin and nails Completed 201210/18/2013 RECORDED 04/01/19 13 10:02AM BY SRIDHAR CHRISTENSEN ON/SHAISTA Sanches MD [address], [place], [address] , [facility] 6 19:33:17 Screenin g for malignan t neoplasm of colon Completed 201210/18/2013 RECORDED 04/01/19 13 10:02AM BY SRIDHAR CHRISTENSEN ON/SHAISTA Sanches MD [address], [place], [address] , [facility] 6 19:33:17 Depressi ve disorder 32011142 Completed 201210/18/2013 RECORDED 04/01/19 13 10:02AM BY SRIDHAR CHRISTENSEN ON/SHAISTA Sanches MD [address], [place], [address] , [facility] 6 19:33:17 Pain in limb 46210704 Completed 201210/18/2013 RECORDED 04/01/19 13 10:02AM BY SRIDHAR CHRISTENSEN ON/SHAISTA Sanches MD [address], [place], [address] , [facility] 6 19:33:17 Hypercho lesterol emia 96553836 Completed 201210/18/2013 RECORDED 04/01/19 13 10:01AM BY SRIDHAR CHRISTENSEN ON/SHAISTA Sanches MD [address], [place], [address] , [facility] 6 19:33:17 Pure hypercho lesterol emia 758241689 Completed 201210/18/2013 RECORDED 04/01/19 13 10:01AM BY SRIDHAR CHRISTENSEN ON/SHAISTA Sanches MD [address], [place], [address] , [facility] 6 19:33:17 Malaise and fatigue 134289383 Completed 201210/18/2013 RECORDED 04/01/19 13 10:01AM BY SRIDHAR CHRISTENSEN ON/SHAISTA Sanches MD [address], [place], [address] , [facility] 6 19:33:17 Patient status finding [id number] Completed 201209/28/2013 RECORDED 09/18/19 13 8:51AM BY SRIDHAR CHRISTENSEN ON/SHAISTA Sanches MD [address], [place], [address] , [facility] 6 19:33:17 Screenin g for malignan t neoplasm of breast Completed 201209/28/2013 RECORDED 09/18/19 13 8:51AM BY SRIDHAR CHRISTENSEN ON/SHAISTA Sanches MD [address], [place], [address] , [facility] 6 19:33:17 Patient status finding [id number] Completed 201210/18/2013 RECORDED 09/18/19 13 8:51AM BY SRIDHAR CHRISTENSEN ON/SHAISTA Sanches MD [address], [place], [address] , [facility] 6 19:33:17 Screenin g for malignan t neoplasm of breast Completed 201210/18/2013 RECORDED 09/18/19 13 8:51AM BY SRIDHAR CHRISTENSEN ON/SHAISTA Sanches MD [address], [place], [address] , [facility] 6 19:33:17 Hearing loss 31732455 Active 2013 wears hearing aids Not Available [facility] 3 14:04:26 Essentia l hyperten butch 17441752 Active 2013 Not Available [facility] 3 14:04:26 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 [address], [place], [address] , [facility] 0 13:25:36 Mononeur itis 61214985 Completed 201309/28/2013 IMPRESSI ON: PROBABLY FROM TRAUMA OF LIFTING HEAVY OBJECTS; SHE WILL CALL IF THIS PERSISTS .; RECORDED 07/13/19 14 12:49PM BY SHEREEN THOMSON I, ANNOTATI ON/ADDEN DUM Lucy Sanches MD [address] [facility] [address], [place], [address] , [facility] 6 19:33:17 Tobacco user 995198383 Completed 201301/13/2014 RECORDED 07/13/19 14 2:19PM BY SHEREEN THOMSON I, OFFICE VISIT Lucy Sanches MD [address] [address], [place], [address] , [facility] 6 19:33:17 History of clinical finding in subject 702706948 Completed 201301/13/2014 RECORDED 07/13/19 14 2:19PM BY SHEREEN THOMSON I, OFFICE VISIT Lucy Sanches MD [address] [facility] [address], [place], [address] , [facility] 6 19:33:17 Adult health examinat ion Completed 201301/13/2014 IMPRESSI ON: WE DISCUSSE D SHINGLES VACCINE AND BONE DENSITY. SHE IS UTD W/MAMMOG TIARA, COLONOSC OPY AND PAP.; RECORDED 07/13/19 14 3:09PM BY LUCY MAZA MD, OFFICE VISIT Lucy Sanches MD [address], [place], [address] , [facility] 6 19:33:17 Mononeur itis 40103442 Completed 201310/18/2013 IMPRESSI ON: PROBABLY FROM TRAUMA OF LIFTING HEAVY OBJECTS; SHE WILL CALL IF THIS PERSISTS .; RECORDED 07/13/19 14 12:49PM BY SRIDHAR CHRISTENSEN ON/ADDEN DUM Lucy Sanches MD [address], [place], [address] , [facility] 6 19:33:17 Screenin g for malignan t neoplasm of cervix Completed 201301/13/2014 RECORDED 07/16/19 14 10:46AM BY JESS RUTLEDGE, HISTORIC AL SUMMARY Lucy Sanches MD [address], [place], [address] , [facility] 6 19:33:17 Seasonal allergy 925478753 Active 2017 Not Available [facility] 3 14:04:26 Osteopen ia 926692768 Active 2018 Not Available [facility] 3 14:04:26 Hyperlip idemia 26134578 Active 2019 Not Available [facility] 3 14:04:26 Hypercal cemia 18718939 Active 2019 Primary hyperpar arthyroi dism secondar y to HCTZ. Will change med if calcium ircrease s Not Available [facility] 3 14:04:26 Thyroid nodule 195653553 Active 2019 Followed by endo; benign. Will have a lobectom y. Not Available [facility] 3 14:04:26 History of SARS-CoV -2 [id number] 7935466 Active 2021 Not Available [facility] 3 14:04:26 First metatars ophalang eal joint pain 008137511 Active 2022 injected at [facility] Not Available [facility] 3 14:04:26 Divertic ulitis of colon 264667769 Active 2022 Not Available [facility] 3 14:04:26 Abscess of sigmoid colon 936578967 Active 2022 Secondar y to divertic ulitis. Treated with drain and abx and may have surgery. 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 Lucy Sanches MD [address], [place], [address] , [facility] 4 12:14:58 Internal hemorrho ids 50275126 Active 2024 Holden Moreira PA-C [address], [place], [address] , [facility] 5 09:56:21 Primary gonarthr osis, bilatera l 467937919 Active 2024 Followed by [facility] and receives injectio ns. Lucy Sanches MD [address] [facility] [address], [place], [address] , [facility] 5 08:08:07 Problem Notes None recorded. Procedures Surgical History Date Name Laterality Status Provider Name and Address Organization Details Recorded Time 01/13/20 25 Most Recent Mammogram completed Alma Duncan [facility] 01/12/2025 13:47:31 01/13/20 25 Mammogram Screening completed Alma Duncan [facility] 01/12/2025 13:47:16 09/01/19 25 injection of knee completed Italia Rojo [facility] 09/15/2024 10:57:03 02/27/20 24 injection of bilateral knee joints completed Francine Farr [facility] 03/01/2024 09:46:44 01/11/20 23 sigmoid colectomy completed Anh Derrell [facility] 01/17/2023 09:19:06 09/10/19 23 injection of bilateral knee joints completed Francine Farr [facility] 09/13/2022 11:36:41 08/23/19 23 injection of joint of finger completed [facility] 08/27/2022 09:29:31 02/05/20 22 lobectomy of thyroid gland completed Francine Farr [facility] 02/22/2022 14:12:27 02/10/20 21 Date of Last Pap Smear completed Cynthia Diaz MA [facility] 07/23/2021 11:15:45 02/08/20 21 Date of Last Colonoscopy completed Italia Rojo [facility] 02/19/2021 13:37:49 02/08/20 21 Colonoscopy completed Italia Rojo [facility] 06/27/2021 15:42:09 05/17/19 19 excision of skin completed Lucy Sanches MD [address], [address], [facility] 07/29/2018 09:27:41 11/20/19 17 Cataract Surgery completed Fatuma Vasques MA [facility] 12/02/2019 13:03:51 03/10/19 17 Cataract Surgery completed Lucy Sanches MD [address] [address], [place], [address], [facility] 07/23/2017 09:40:20 01/19/20 11 Colposcopy completed Omar Cruz [facility] 07/17/2015 10:40:04 03/10/19 01 Hysterectomy completed Cynthia Diaz MA [facility] 07/23/2021 11:06:58 06/08/18 84 Appendectomy completed Cynthia Diaz MA [facility] 07/23/2021 11:06:59 Appendectomy completed Fatuma Vasques MA [facility] 12/02/2019 13:03:51 Hysterectomy completed Cynthia Diaz MA [facility] 07/23/2021 11:06:59 Imaging Results None recorded. Procedure Notes None recorded. Medical Equipment None Reported. Allergies Allergen ID Allergen Name Allergen Category Reaction Reaction Severity Criticality Documentation Date Start Date Code Code System Note Provider Name and Address Organization Details Recorded Time 78059 hydrochlo rothiazid e medicatio n Not available Not available Not available 02/16/2022 5487 RxNorm hyper calce segundo Lucy justice MD [address] [facility] [address], [facility] [place], [address] [facility] 2 10:44:00 Medications Name Sig Start Date Stop Date Status Note LastModified by Organization Details LastModified Time amoxicill in 500 mg capsule TAKE 1 CAPSULE BY MOUTH 3 TIMES A DAY 07/23 completed Not Available Not Available Not Available fluconazo le 100 mg tablet TAKE 1 TABLET BY MOUTH EVERY DAY FOR 7 DAYS 01/28 completed Not Available Not Available Not Available atorvasta tin 40 mg tablet TAKE 1 TABLET BY MOUTH EVERY DAY active Not Available Not Available No t Available acetamino phen 325 mg tablet Take 2 tablets every 8 hours by oral route as needed. 07/30 completed Not Available Not Available Not Available lisinopri l 20 mg-hydroc hlorothia zide 12.5 mg tablet DAILY active Not Available Not Available No t Available sertralin e 100 mg tablet QD 05/08 completed RECORDED 08/05/19 08 4:24PM BY JOSE LUIS JOSHI MA, OFFICE VISIT; Not Available Not Available Not Available atenolol 50 mg-chlort halidone 25 mg tablet DAILY 2011 active RECORDED 08/02/19 12 3:40PM BY LUCY MAZA MD, ANNOTATI ON/ADDEN DUM; Not Available Not Available Not Available moxifloxa addie 400 mg tablet TAKE 1 TABLET BY MOUTH EVERY DAY FOR 10 DAYS 11/22 completed Not Available Not Available Not Available metronida zole 500 mg tablet TAKE 1 TABLET BY MOUTH AT 1PM, 2PM AND 10PM THE DAY BEFORE YOUR SURGERY 01/28 completed Not Available Not Available Not Available ciproflox acin 500 mg tablet Take 1 tablet every 12 hours by oral route for 7 days. 07/23 completed Not Available Not Available Not Available peg-elect rolyte solution 420 gram oral solution MIX AND DRINK DIRECTED 07/23 completed Not Available Not Available Not Available simvastat in 40 mg tablet TAKE 1 TABLET BY MOUTH EVERY DAY active Not Available Not Available No t Available levothyro xine 25 mcg tablet TAKE 1 TABLET BY MOUTH EVERY DAY active Not Available Not Available No t Available hydrocort isone 2.5 % topical cream with perineal applicato r APPLY SPARINGL Y TO AFFECTED AREA 2 TO 4 TIMES A DAY 12/28 completed Not Available Not Available Not Available terbinafi ne HCl 250 mg tablet TAKE 1 TABLET BY MOUTH EVERY DAY 2014 active Not Available Not Available Not Avai lable amoxicill in 875 mg tablet TAKE 1 TABLET BY MOUTH TWICE A DAY FOR 7 DAYS STARTING DAY AFTER SURGERY 02/12 completed Not Available Not Available Not Available amlodipin e 5 mg-benaze pril 10 mg capsule TAKE 1 CAPSULE BY MOUTH EVERY DAY DIRECTED 12/28 completed increase d to 5/20 mg dose Not Available Not Available Not Available amlodipin e 5 mg-benaze pril 20 mg capsule Take 1 capsule every day by oral route for 90 days, for blood pressure . 2024 active Not Available Not Available Not Avai lable lisinopri l 20 mg-hydroc hlorothia zide 25 mg tablet TAKE 1 TABLET BY MOUTH EVERY DAY 02/16 completed persiste ntly elevated calcium. Not Available Not Available Not Available hydrocort isone 2.5 % topical cream PLEASE SEE ATTACHED FOR DETAILED DIRECTIO NS 12/28 completed Not Available Not Available Not Available neomycin 500 mg tablet TAKE 2 TABLET BY MOUTH AT 1PM, 2PM AND 10PM THE DAY BEFORE YOUR SURGERY 01/28 completed Not Available Not Available Not Available ondansetr on 4 mg disintegr ating tablet Place 1 tablet every 6 hours by oral route as needed for 3 days. 10/30 completed Not Available Not Available Not Available doxycycli ne hyclate 100 mg tablet 07/29 completed Not Available Not Available Not Available atenolol 50 mg tablet QD 05/08 completed RECORDED 08/05/19 08 4:24PM BY JOSE LUIS JOSHI MA, OFFICE VISIT; Not Available Not Available Not Available docusate sodium 100 mg tablet Take 1 tablet twice a day by oral route as directed for 30 days. 07/30 completed Not Available Not Available Not Available amoxicill in 875 mg-potass ium clavulana te 125 mg tablet 12/01 completed Not Available Not Available Not Available oxycodone 5 mg tablet Take 1 tablet every 4 hours by oral route as directed for 3 days. 01/28 completed Not Available Not Available Not Available Co Q-10 100 mg capsule Take 1 capsule every day by oral route. active Not Available Not Available No t Available Gauze Pad 4 X 4 bandage use as directed 07/30 completed Not Available Not Available Not Available Hypafix 2 X 10 yard tape use as directed 07/30 completed Not Available Not Available Not Available Readi-Cat 2 2.1 % (w/v), 2.0 % (w/w) oral suspensio n Take 450 mL twice a day by oral route as directed for 1 day. 10/30 completed Not Available Not Available Not Available nitrofura ntoin monohydra te/macroc rystals 100 mg capsule TAKE 1 CAPSULE BY MOUTH TWICE A DAY FOR 7 DAYS 10/24 completed Not Available Not Available Not Available chlorhexi dine gluconate 0.12 % mouthwash PLEASE SEE ATTACHED FOR DETAILED DIRECTIO NS 02/12 completed Not Available Not Available Not Available biotin 01/29 completed Not Available Not Available Not Available Calcium 500 + D 2 daily active Not Available Not Available Not Available Excilon Drain 4 X 4 sponge use as directed 07/30 completed Not Available Not Available Not Available BD PosiFlush Normal Saline 0.9 % injection syringe 07/30 completed Not Available Not Available Not Available Osteo Bi-Flex active Not Available Not Available Not Available Probiotic (B. coagulans ) 10 billion cell capsule,d elayed release Take 1 capsule every day by oral route. active Not Available Not Available No t Available Shingrix (PF) 50 mcg/0.5 mL intramusc ular suspensio n, kit 01/29 completed Not Available Not Available Not Available Flucelvax Quad (PF) 60 mcg (15 mcg x 4)/0.5 mL IM syringe 01/29 completed Not Available Not Available Not Available Fluzone Quad (PF) 60 mcg (15 mcg x 4)/0.5 mL IM syringe PHARMACY ADMINIST ERELis 12/01 completed Not Available Not Available Not Available Advil Dual Action 125 mg-250 mg tablet Take 2 tablets every 12 hours by oral route as needed. 07/23 completed Not Available Not Available Not Available Vitals Date Recorded Body height Body mass index (BMI) Body weight Heart rate Oxygen saturation Oxygen saturation in Arterial blood by Pulse oximetry Body temperature Systolic And Diastolic Provider Name and Address Organization Details Last Updated DateTime 4 149.86 cm 26.7 kg/m2 22077.1 9 g 57 /min 98 % 98 % 97.2 [degF] 129/76 mm[Hg] Sujata Rasmussen LPN [facility] 4 09:55:42 Date Recorded Body height Body mass index (BMI) Body weight Heart rate Oxygen saturation Oxygen saturation in Arterial blood by Pulse oximetry Body temperature Systolic And Diastolic Provider Name and Address Organization Details Last Updated DateTime 5 149.86 cm 26.9 kg/m2 77494.7 9 g 61 /min 99 % 99 % 97.8 [degF] 126/76 mm[Hg] Kuamr hernandez [facility] 5 09:29:00 Date Recorded Body height Body mass index (BMI) Body weight Heart rate Oxygen saturation Oxygen saturation in Arterial blood by Pulse oximetry Body temperature Systolic And Diastolic Provider Name and Address Organization Details Last Updated DateTime 5 149.86 cm 27.5 kg/m2 05327.5 6 g 79 /min 98 % 98 % 96.7 [degF] 143/71 mm[Hg] Sejal Tate [facility] 5 15:19:29 Date Recorded Body mass index (BMI) Body weight Heart rate Oxygen saturation Oxygen saturation in Arterial blood by Pulse oximetry Body temperature Systolic And Diastolic Provider Name and Address Organization Details Last Updated DateTime 4 27.5 kg/m2 25291.5 6 g 77 /min 97 % 97 % 97 [degF] 128/72 mm[Hg] Lucy justice MD [address], [place], [address], [facility] 4 11:14:52 Date Recorded Body height Provider Name an d Address Organization Details Last Updated DateTime 01/13/2024 149.86 cm Sejal Tate MA [facility] 01/13/2024 10:47:47 Date Recorded Body height Body mass index (BMI) Body weight Heart rate Oxygen saturation Oxygen saturation in Arterial blood by Pulse oximetry Body temperature Systolic And Diastolic Provider Name and Address Organization Details Last Updated DateTime 3 149.86 cm 25.2 kg/m2 22512.0 5 g 67 /min 99 % 99 % 98.1 [degF] 136/84 mm[Hg] Sejal Tate MA [facility] 3 10:53:52 Social History Question Answer Notes LastModified by Organizat ion Details LastModified Time Tobacco Smoking Status Former Smoker quit 1988 Not Available [facility] 01/11/2020 03:36:36 Do You Have An Advance Directive? No No HCP On File Information not available 02/12/2022 Is Blood Transfusion Acceptable In An Emergency? Yes [id number] Information not available 01/11/2020 What Is Your Level Of Caffeine Consumption? Moderate 2 Servings Of Coffee Daily [id number] Information not available 01/11/2020 How Much Tobacco Do You Chew? None [id number] Information not available 01/11/2020 What Type Of Diet Are You Following? REGULAR [id number] Information not available 01/11/2020 Which Illicit Or Recreational Drugs Have You Used? None [id number] Information not available 01/11/2020 When Did You Quit Smoking? 14+yearssinc [email or web address] te Information not available 07/23/2021 Live Alone Or With Others? With Others (Jamey) And 1 Son (Raphael) Who Is There Forcer Maker Information not available 07/31/2023 Do You Take Precautions To Prevent Distracted Driving? Yes Information not available 07/17/2015 How Often Do You Need To Have Someone Help You When You Read Instructions, Pamphlets, Or Other Written Material From Your Doctor Or Pharmacy? Never Information not available 07/17/2015 Have You Served In The ? No [email or web address] Information not available 07/18/2016 Have You Or Anyone In Your Household Had Any Of The Following Symptoms In The Last 14 Days: Sore Throat, Cough, Chills, Body Aches For Unknown Reasons, Shortness Of Breath For Unknown Reasons, Loss Of Smell, Loss Of Taste, Fever At Or Greater Than 100 Degrees Fahrenheit? No [email or web address] Information not available 12/02/2019 Are You Or Anyone In Your Household A Health Care Provider Or Emergency Responder? No [email or web address] Information not available 12/02/2019 To The Best Of Your Knowledge Have You Been In Close Proximity To Any Individual Who Tested Positive For COVID-19? No Information not available 12/02/2019 Have You Recently Traveled To A COVID-19 High Risk Area Or Gathering In The Last 10 Days? No [email or web address] Information not available 05/31/2020 What Was The Date Of Your Most Recent Tobacco Screening? 12/28/2024 [email or web address] Information not available 12/28/2024 How Many Children Do You Have? 3 Riosbernice, Lisbeth, And Raphael And 3 GC Information not available 07/31/2023 Do You Use Protection During Sex? No [id number] Information not available 01/11/2020 Do You Use Your Seat Belt Or Car Seat Routinely? Yes Information not available 07/23/2021 Seat Belts Used Routinely Yes Information not available 02/12/2022 Are You Sexually Active? Yes [id number] Information not available 01/11/2020 Smoke Alarm In Home Yes Information not available 02/12/2022 Do You Have Smoke And Carbon Monoxide Detectors In Your Home? Yes Information not available 07/23/2021 At What Age Did You Start Smoking Tobacco? 18 [id number] Information not available 01/11/2020 Are You Passively Exposed To Smoke? No Information not available 07/17/2015 How Much Tobacco Do You Smoke? 1 PPW [id number] Information not available 01/11/2020 Do You Use Sunscreen Routinely? Yes [id number] Information not available 01/11/2020 How Many Years Have You Smoked Tobacco? 10 [id number] Information not available 01/11/2020 Sex: Unknown Functional Status Question Answer Note LastModified by Organizat ion Details LastModified Time Do you use any illicit or recreational drugs? No Information not available 02/12/2022 Do you or have you ever used any other forms of tobacco or nicotine? No Information not available 02/12/2022 What is your level of alcohol consumption? None Information not available 07/23/2021 Do you or have you ever used smokeless tobacco? Never used smokeless tobacco [id number] Information not available 01/11/2020 Are you currently employed? No [id number] Information not available 01/11/2020 Are you able to walk independently without assistance or assistive devices? YESWOREST Information not available 02/12/2022 Are you able to care for yourself independently? Yes [id number] Information not available 01/11/2020 What is your occupation? n/a [email or web address] Information not available 07/23/2017 Do you or have you ever used e-cigarettes or vape? Never used electronic cigarettes Information not available 02/12/2022 What is your exercise level? Occasional [id number] Information not available 01/11/2020 Mental Status None recorded. Family History Relationship Description Onset Age of this Age Resolved Age Notes LastModified by Organization Details LastModified Time Mother Coronary arterioscler osis 80 Not available 2021 12:45:15 Mother Metastatic adenocarcino ma of unknown origin 80 Not available 2021 12:45:15 Mother Harmful pattern of use of alcohol 80 [email or web address] Not available 07/09 10:08:36 Father Coronary arterioscler osis 77 Not available 2021 12:45:15 Father Malignant neoplasm of prostate 77 Not available 2021 12:45:15 Son Harmful pattern of use of alcohol [email or web address] Not available 12/01 13:03:30 Maternal Grandmother Alzheimer's disease [email or web address] Not available 12/01 13:03:30 Sister Malignant neoplasm of breast [email or web address] Not available 07/09 10:23:27 Notes:5 sisters (she's in th e middle) Medical History Condition Response Gout N Other N Blood Diseases N Kidney Stones N Hyperthyroidism N Breast Cancer N Depression Y COPD N Lung Disease N Hypothyroidism N Defects or Inherited Disease N Anesthesia Complications N Headaches/Migraines N Anxiety Disorder N Varicose Veins N Obesity N Vision or Eye Problems Y Arthritis N Head Injury/Concussion N Polyps N Infertility N Congenital Anomalies N Acid Reflux (GERD) N Cancer N Stroke N ADHD N Endometriosis N High Cholesterol Y Liver Disease N Fibromyalgia N Kidney Disease N Heart Problems N Ear or Hearing Problems Y Hospitalizations N Thyroid Problems N GI Problems N Acne N Eating Disorder N Skin Problems N Anemia N Constipation N Bladder Problems N Mental Illness N Ovarian Cancer N Diabetes N Blood Transfusions N Seizures/Epilepsy N Tuberculosis N AIDS/HIV N Congestive Heart Failure (CHF) N Eczema N Diverticulitis Y Abuse/Domestic Violence N Asthma N Allergies Y Reflux/GERD N Hepatitis N Pulmonary Embolism N Hypertension Y Chicken Pox Y Autism Spectrum Disorder (ASD) N Osteoporosis N Gynecological History Statement/Question Response Date of Last Colonoscopy 02/07/2021 Menses Monthly N Date of Last Pap Smear 02/09/2021 Sexual Problems? N Current Control Method None Most Recent Mammogram 01/12/2025 LMP Unknown Desired Control Method N/A Obstetrics History GPAL:G 0 P 0 0 0 0 Immunizations Vaccine Type Date Status Note Provider Nam e and Address Organization Details Recorded Time Influenza, split virus, trivalent, preservative 8 completed [facility] 12/03/2022 09:22:23 zoster recombinant 9 completed Italia walton [facility] 12/03/2022 09:22:23 Influenza, split virus, trivalent, preservative 9 completed Italia Rojo null, [facility] 12/03/2022 09:22:23 zoster recombinant 9 completed Italia Rojo null, [facility] 12/03/2022 09:22:23 influenza, intradermal, quadrivalent, preservative free 0 completed Italia Rojo null, [facility] 12/03/2022 09:22:23 COVID-19, mRNA, LNP-S, PF, 30 mcg/0.3 mL dose 1 completed Italia Rojo null, [facility] 12/03/2022 09:22:23 COVID-19, mRNA, LNP-S, PF, 30 mcg/0.3 mL dose 1 completed Italia Rojo null, [facility] 12/03/2022 09:22:23 COVID-19, mRNA, LNP-S, PF, 30 mcg/0.3 mL dose, ellie-sucrose 2 completed Italia Rojo null, [facility] 12/03/2022 09:22:23 Influenza, split virus, trivalent, preservative 1 completed Italia Rojo null, [facility] 12/03/2022 09:22:23 Influenza, MDCK, quadrivalent, PF 2 completed Italia Rojo null, [facility] 12/03/2022 09:22:23 COVID-19, mRNA, LNP-S, bivalent, PF, 30 mcg/0.3 mL dose 2 completed Italia Rojo null, [facility] 12/03/2022 09:22:23 Influenza, split virus, trivalent, preservative 4 completed Italia Rojo null, [facility] 12/03/2022 09:22:23 Influenza, split virus, quadrivalent, preservative 5 completed Italia Rojo null, [facility] 12/03/2022 09:22:23 Influenza, split virus, quadrivalent, preservative 6 completed Italia Rojo null, [facility] 12/03/2022 09:22:23 COVID-19, mRNA, LNP-S, PF, 30 mcg/0.3 mL dose 1 completed Italia Rojo null, [facility] 12/03/2022 09:22:23 Influenza, split virus, quadrivalent, preservative 8 completed Italia Rojo null, [facility] 12/03/2022 09:22:23 Influenza, MDCK, quadrivalent, PF 3 completed Sujata Rasmussen [employer] null, [facility] 07/31/2023 09:56:08 COVID-19, mRNA, LNP-S, PF, ellie-sucrose, 30 mcg/0.3 mL 3 completed Sujata Rasmussen, [employer] null, [facility] 07/31/2023 09:56:08 COVID-19, mRNA, LNP-S, PF, ellie-sucrose, 30 mcg/0.3 mL 4 completed Kumar Ambriz MA null, [facility] 09/21/2024 09:23:49 Influenza, high-dose, trivalent, PF 4 completed Italia Rojo null, [facility] 12/01/2023 15:26:41 Tdap 5 completed Italia Rojo null, [facility] 06/28/2024 13:58:29 Pneumococcal conjugate PCV20, polysaccharide CTC178 conjugate, adjuvant, PF 4 completed Not Available [facility] 12/28/2024 15:33:12 Influenza, split virus, quadrivalent, PF 7 completed Not Available [facility] 03/27/2019 02:22:11 Tdap 0 completed Lucy Sanches MD [address] [facility] [address], [place], [address], [facility] 12/02/2019 13:51:31 Influenza, split virus, trivalent, preservative 0 completed Italia Rojo null, [facility] 12/03/2022 09:22:23 Novel Gpcifatuw-V2T1-12, all formulations 0 completed Italia Rojo null, [facility] 12/03/2022 09:22:23 Tdap 0 completed Italia Rojo null, [facility] 12/03/2022 09:22:23 Past Encounters Encounter ID Performer Location Encounter Start Date Encounter Closed Date Diagnosis/Indication Diagnosis SNOMED-CT Code Diagnosis ICD10 Code Diagnosis IMO Codes Diagnosis Note [id number] [facility] erce [address] [facility] [place] [address] 02/02/2007 00:00:00 [id number] auto[facility]Comm erce [address] [facility] [place] [address] 08/05/2007 00:00:00 [id number] auto[facility]Comm erce [address] [facility] [place] [address] 11/03/2007 00:00:00 [id number] auto[facility]Comm erce [address] [facility] [place] [address] 09/26/2008 00:00:00 [id number] auto[facility]Comm erce [address] [facility] [place] [address] 11/22/2008 00:00:00 [id number] [facility] er[facility] [address] [facility] [place] [address] 03/29/2009 00:00:00 [id number] auto[facility] erce [address] [facility] [place] [address] 09/27/2009 00:00:00 [id number] auto[facility] erce [address] [facility] [place] [address] 04/03/2010 00:00:00 [id number] [facility] erce [address] [facility] [place] [address] 10/01/2010 00:00:00 [id number] [facility] erce [address] [facility] [place] [address] 08/02/2011 00:00:00 [id number] auto[facility]Comm erce [address] [facility] [place] [address] 09/04/2011 00:00:00 [id number] [facility] erce [address] [facility] [place] [address] 04/01/2012 00:00:00 [id number] auto[employer]Comm erce [address] [facility] [place] [address] 09/17/2012 00:00:00 [id number] auto[facility] [place]ce [address] [place] [address],[address] [place] [address] 07/12/2013 00:00:00 [id number] Luyc Sanches MD Main Office [address] [address] [place] [address] 01/13/2014 09:16:15 01/13/2014 09:51:22 Essential hypertension 25381247 not well-contr olled; we will increase her med and she will call if her systolic remains above 140. Mixed hyperlipidemia 332593279 check levels and if still high we will change to atorvastat in [id number] Lucy Sanches MD Main Office [address] [address] [place] [address] 07/13/2014 10:17:44 07/13/2014 11:08:05 Adult health examination 423585243 Essential hypertension 74171420 not well-contr olled; we will increase her med and she will call if her systolic remains above 140. Mixed hyperlipidemia 713579619 check levels and if still high we will change to atorvastat in Onychomycosis 852667628 Cough 21457035 mild and possibly due to allergies; try OTC meds. No abx needed. [id number] Lucy Sanches MD Main Office [address] [address] [place] [address] 01/13/2015 09:13:01 01/13/2015 09:48:11 Essential hypertension 55891721 I10 Well-contr olled. No changes. Body mass index 25-29 - overweight 457784576 E66.3 she recently started [employer] [id number] Lucy Sanches MD Main Office [address] [address] [place] [address] 07/17/2015 10:18:27 07/17/2015 11:04:41 Essential hypertension 12042108 I10 Well-contr olled. No changes. Mixed hyperlipidemia 267 900530 E78.2 check levels and if still high we will change to atorvastat in Adult heal th examination 490869313 Z00.00 Knee pain 89820021 M25.5 62 [id number] Lucy Sanches MD Main Office [address] [place] [address] 01/19/2016 10:49:00 01/19/2016 11:47:42 Essential hypertension 78081271 I10 Good contol; continue current mgmt. Abdominal pain 03388575 R10.9 She has been improving and will call if she develops now symptoms or if they persist. [id number] Lucy Sanches MD Main Office [address] [address] [place] [address] 07/18/2016 10:16:24 07/18/2016 10:50:59 Adult health examination 104530755 Z00.00 Mixed hyperlipidemia 267 823368 E78.2 check levels and if still high we will change to atorvastat in Essential hypertension 82804194 I10 Good contol; continue current mgmt. 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 [id number] Holden Moreira PA-C Main Office [address] [address] [place] [address] 11/06/2016 08:57:29 11/06/2016 09:46:10 Pre-surgery evaluation 336148862 Z01.818 Needs infl uenza immunization 332169759 Z23 Bilateral cataracts 9572 2003 H25.013 Essential hypertension 39516756 I10 Mixed hyperlipidemia 267 304677 E78.2 Diarrhea 23820315 R19.7 resolved on probiotic [id number] Lucy Sanches MD Main Office [address] [address] [place] [address] 01/15/2017 10:03:18 01/15/2017 10:52:43 Essential hypertension 17340016 I10 Good contol; continue current mgmt. Sciatica 38572163 M54.31 She was given exercises to do at home and if it persists she will call here for a referral. [id number] Lucy Sanches MD Main Office [address] [address] [place] [address] 07/23/2017 09:10:02 07/23/2017 09:57:25 Adult health examination 488539016 Z00.00 UTD with colonoscop y and due again in 2020. Advised to get a shingles vaccine at her pharmacy. Essential hypertension 11319862 I10 Good control; continue current mgmt. Mixed hyperlipidemia 267 178720 E78.2 Last LDL was at goal. [id number] Lucy Sanches MD Main Office [address] [address] [place] [address] 01/21/2018 09:18:51 01/21/2018 10:01:05 Essential hypertension 05350537 I10 Good control; continue current mgmt. Seasonal allergy 0294236 04 J30.2 Mixed hyperlipidemia 267 532699 E78.2 Last LDL was at goal. [id number] Lucy Sanches MD Main Office [address] [address] [place] [address] 07/29/2018 09:00:35 07/29/2018 09:50:18 Adult health examination 845105353 Z00.00 UTD with colonoscop y and due again in 2020. Advised to get a shingles vaccine at her pharmacy. We discussed calcium supplement ation. Varicella vaccination 68 373574 Z23 Screening for malignant neoplasm of breast 399578496 Z12.39 Screening for malignant neoplasm of cervix 134126851 Z12.4 Menopause present 790149 006 Z78.0 Essential hypertension 27680255 I10 Good control; continue current mgmt. Knee pain 12928079 M25.5 62 [id number] Lucy Sanches MD Main Office [address] [facility] [address] [place] [address] 01/29/2019 09:59:45 01/29/2019 10:35:43 Essential hypertension 96189571 I10 Good control; continue current mgmt. Osteopenia 287497307 M85 .80 Will take calcium with vitamin D twice daily and increase weight-manuel ring exercise. [id number] Lucy Sanches MD Main Office [address] [facility] [address] [place] [address] 12/02/2019 12:59:36 12/02/2019 13:45:39 Adult health examination 488597724 Z00.00 UTD with colonoscop y and due again in 2020. Advised to get a shingles vaccine at her pharmacy. We discussed calcium supplement ation. Administra tion of viral vaccine 23845513 Z23 Essential hypertension 21736548 I10 Good control; continue current mgmt. Hyperlipidemia 45308951 E78.5 Localized swelling, mass and lump, neck 392898547 R22.1 Heart murmur 14566279 R0 1.1 [id number] Lucy Sanches MD Main Office [address] [facility] [address] [place] [address] 05/31/2020 10:03:55 05/31/2020 10:42:02 Essential hypertension 14831213 I10 Good control; continue current mgmt. Hyperlipidemia 51875573 E78.5 On meds and at goal. Hypercalcemia 12188361 E 83.52 Primary hypercalce segundo probably secondary to the HCTZ. Seen by endo. Will repeat labs. Heart murmur 44567412 R0 1.1 She had an ECHO which showed normal valves. [id number] [facility] [address] [facility] [address] [place] [place] [address] 08/10/2020 12:15:53 08/10/2020 14:31:37 Abdominal pain 07501401 R10.9 She had a similar, milder problem in the past that resolved on its own. Doubt IBS. No blood making IBD less likely but still a possibilit y. Diverticul itis of colon 763775541 K57.32 Presumed diagnosis. Will start abx and get a CT scan. May stop if scan is negative. [id number] Lucy Sanches MD Main Office [address] [place] [address] 07/23/2021 11:05:15 07/23/2021 11:50:35 Adult health examination 099077936 Z00.00 UTD with colonoscop y and due again in 2025. Also UTD with immunizati ons including COVID< flu, tetanus and shingles. Hyperlipidemia 08644316 E78.5 On meds and at goal at last check. Will do fasting labs. Essential hypertension 31914573 I10 Good control; continue current mgmt. Heart murmur 88145937 R0 1.1 She had an ECHO which showed normal valves. [id number] Lucy Sanches MD Main Office [address] [place] [address] 02/12/2022 12:44:48 02/12/2022 13:25:24 Essential hypertension 26647178 I10 Good control; continue current mgmt. History of SARS-CoV-2 29 32396680 12533926 Z86.16 Had very mild symptoms for a few days. Hyperlipidemia 70708882 E78.5 On meds and at goal at last check. Will do fasting labs in 2022. Seasonal allergy 4149925 04 J30.2 Receives allergy shots which help. [id number] Lucy Sanchse MD Main Office [address] [place] [address] 07/30/2022 11:00:32 07/30/2022 11:57:47 Adult health examination 407194274 Z00.00 UTD with colonoscop y and due again in 2025. Also UTD with immunizati ons including COVID, flu, tetanus and shingles. Essential hypertension 99797429 I10 Running high today but states that it is usually under good control. She will follow at home. Hearing loss 59966847 H9 0.3 Wears hearing aids and is followed by audiology. Hyperlipidemia 62665574 E78.5 On meds and at goal at last check. Will do fasting labs in 2022. Will change her to atorvastat in to get better control.si mvastatin Pain of le ft knee joint [id number] 85482 M25.562 Chronic pain and feels like there is something in her knee that is movable. Pain in right thumb 1076 677465 861487 M79.644 Refer to [facility] [id number] Immanuel Cross MD Main Office [address] [facility] [address] [place] [address] 10/24/2022 09:05:56 10/24/2022 09:43:54 Urinary tract infectious disease 07604648 N39.0 Will request urine culture results from , and verify resolution . Nausea 984737432 R11.0 Continue ondansetro n. Abdominal pain 60997327 R10.9 Sounds like she may be experienci ng side effects from macrobid. Screen for cbc/pancre atic and hepatic abnormalit ies. Will monitor if abnormal. Liqui to low residue diet advised. May need imaging or serial labs depending on results. Low blood pressure 60488 003 I95.9 Advised to hold BP meds, reassess next week. Candidiasis of mouth 797 18513 B37.0 Advised to hold atorvastat in and BP meds while on fluconazol e [id number] Immanuel Cross MD Main Office [address] [facility] [address] [place] [address] 10/30/2022 11:26:15 10/30/2022 12:26:06 Abdominal pain 33679837 R10.9 suprapubic pain & elevated wbc ct most likely d/t diverticul itis - feels ~ 75% better, see belowreche ck labs Diverticul itis of colon 938251624 K57.32 finish abx as dir, recommend cont. probiotics while on abxpending ct scan a/p tonightenc ouraged pt to f/u c gi in the near future - hopefully ac next f/u c [facility], likely needs surveillan ce colonoscop y to make sure diverticul itis has healedcurr - rec low residue diet, stay hydrated - if pain returns, then downgrade to clear liquids, then advance to full liquids, then soft diet/low residue, then advance as savannah - in future, rec high fiber diet *will fwd copy of this ov note to gi* Low blood pressure 23475 003 I95.9 last week had low bp - resolved - bp stable - okay to resume bp meds as dir p finish fluconazol e Leukocytosis 048248273 D 72.829 recheck labs, cbcd and cmp above - angelia d/t elevated lfts Candidiasis of mouth 797 10512 B37.0 resolving, finish fluc. as dir [id number] Lucy Sanches MD Main Office [address] [facility] [address] [place] [address] 11/06/2022 08:56:31 11/06/2022 16:56:33 [id number] Immanuel Cross MD Telehealt [facility] [address] [place] [address] [address] [place] [address] 11/22/2022 11:56:19 12/02/2022 08:37:06 Diverticulitis of colon 885662392 K57.32 s/p complicate d course including abscess requiring drain placement via IR. Following with Dr. Cummins. Explained that options are to resect with risk of being unable to re anastamosi s vs close monitoring after drain removed with risk for recurrence . Abscess of sigmoid colon 997004531 K63.0 Resolving with drainage. Essential hypertension 83674580 I10 Having some lower blood pressures at home since the surgery, but no significan t orthostati c or other concerning symptoms. advised to call if that should develop as one of her combo pill BP meds may need to be reduced or discontinu ed. [id number] Lucy Sanches MD Main Office [address] [address] [place] [address] 01/17/2023 09:01:57 01/17/2023 11:28:12 [id number] Lucy Sanches MD Main Office [address] [place] [address] 01/28/2023 10:45:47 01/28/2023 11:21:17 Essential hypertension 28860784 I10 Good control; continue current mgmt. Hyperlipidemia 62380734 E78.5 Continue current meds and check fasting lipid level next appointmen t. Abscess of sigmoid colon 154823148 K63.0 S/p surgery 01/10/23 and back to her baseline. [id number] Lucy Sanches MD Main Office [address] [place] [address] 07/31/2023 09:44:19 07/31/2023 10:42:58 Adult health examination 485634325 Z00.00 UTD with colonoscop y and due again in 2025. Also UTD with immunizati ons including COVID, flu, tetanus and shingles. Due for a prevnar 20 which she will get at her pharmacy. Essential hypertension 29027346 I10 Good control; continue current mgmt. Hyperlipidemia 22833072 E78.5 Continue current meds and check fasting lipid level next appointmen t. Osteopenia 756600953 M85 .80 Takes calcium with vitamin D twice daily and increased weight-manuel ring exercise. Administra tion of pneumococcal vaccine 00126586 Z23 [id number] Lucy Sanches MD Main Office [address] [place] [address] 01/13/2024 10:43:33 01/13/2024 11:20:54 Essential hypertension 94818463 I10 Good control; continue current mgmt. Hyperlipidemia 91175164 E78.5 Continue current meds and check fasting lipid level next appointmen t. 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 [id number] Immanuel Cross MD Main Office [address] [place] [address] 09/21/2024 09:12:04 09/21/2024 09:57:11 Internal hemorrhoids 77830544 K64.8 096594 rec steroid cream and get sx evalfor donavan-recta l irritation /moisture - rec desitin creamy (zinc oxide) [id number] Lucy Sanches MD Main Office [address] [place] [address] 12/28/2024 15:10:02 12/28/2024 16:16:11 Adult health examination 190370664 Z00.00 Last colonoscop y done by Dr Whitman in February 2021.Also UTD with immunizati ons including COVID, flu, tetanus, pneumonia and shingles. Essential hypertension 91733246 I10 Good control; continue current mgmt. Hyperlipidemia 23501822 E78.5 Continue current meds and check fasting lipid level next appointmen t. Secondary hypothyroidism 30294680 E03.8 C/w meds Osteopenia 285997133 M85 .80 Takes calcium with vitamin D twice daily and advised weight-manuel ring exercise. Hearing loss 33779429 H9 0.3 Wears hearing aids and is followed by audiology. Hypercalcemia 31321127 E 83.52 Primary hypercalce segundo probably secondary to the HCTZ. Seen by endo. Will repeat labs. Screening for malignant neoplasm of colon 255071109 Z12.11 Her last colonoscop y was in [address] Whitman with a 5 year call back but she had a partial colectomy in 2022 secondary to an abscess from a perforated diverticul a so will make a f/u now. Easy bruising 135532775 R23.3 863942 Varicose v eins of lower extremity 93209655 I83.893 [id number] Health Concerns Section Related Observation LastModified by Organization Detai ls LastModified Time None Recorded Concern Status LastModified by Organization Details LastModified Time None Recorded Advance Directives Directive N: no HCP on file Payers Insurance Date Sequence Insurance Name Policy Number Policy Rodrigues Covered Member ID Rodrigues Member ID Guarantor Name 12/28/2024 1 [place] [employer] Roxanna Valenzuela [id number] Jamey Valenzuela 07/24/2023 1 [id number] Jamey Valenzuela [id number] Jamey Valenzuela 12/28/2024 2 [place] [id number] Roxanna Valenzuela [id number] Jamey Valenzuela Notes Date Note Type Note Provider Name and Address Organization Details Recorded Time 3 text/html HyperlipidemiaReported by PatientHPIFor type of hyperlipidemia, patient reportshypercholesterolemia . For duration, patient reportschronic. For risk factors, patient reportshypertension. For control, patient reportsusually well controlledandat goal. For compliance, patient reportscompliant,compliant with diet, andexercises. For complications, patient reportsno coronary artery disease,no peripheral artery disease, andno cardiovascular disease. Hypertension F/UReported by PatientHPIFor associated symptoms, patient reportsno dizziness,no lightheadedness,no chest pain,no shortness of breath,no palpitations,no edema, andno calf pain with exertion. For lifestyle, patient reportsregular exerciseandlimiting/avoidin g salt. For medications, patient reportstaking medications as directedandno side effects from medication. She had a partial colectomy 18 days ago secondary to perforated diverticulitis and has been doing well. Eating well and normal bm's. Her vandana were removed. Has a f/u with her surgeon in 3 weeks. Lucy Sanches MD [address], [address], [facility] 01/28/2023 12:29:52 4 text/html Medicare Annual Wellness VisitReported by PatientSocial/Behavioral HistoryFor fracture risk, patient reportshistory of fractures (collar bone as a child)but reportsno previous musculoskeletal injuries. For diet and nutrition, patient reportshealthy dietanddiscussed maintaining calcium balance. For physical activity, patient reportsexercises on a regular basis,good physical condition, anddiscussed exercise habits.Mental Status:For depression risk, patient reportshistory of depressionbut reportsnever feels sad, empty, or tearful,no loss of interest in activities,no significant changes in weight,no sleep disturbances or insomnia, andno loss of energy. For orientation, patient reportsno disorientation to time,no disorientation to date, andno disorientation to place. For concentration and memory, patient reportsno decreased concentrating ability,no memory lapses or loss, anddoes not forget words. For speech/motor difficulties, patient reportsno speech difficultiesanddoes not knock things over when trying to pick them up.Functional AbilityFor hearing, patient reportswears hearing aids. For vision, patient reportsno vision problems. For activities of daily living, patient reportsable to bathe with limited or no assistance,able to contol urination and bowels,able to dress with limited or no assistance,able to feed self with limited or no assistance,able to get out of chair or bed with limited or no assistance,able to groom with limited or no assistance, andable to toilet with limited or no assistance. For instrumental activities of daily living, patient reportsable to do house work with limited or no assistance,able to grocery shop with limited or no assistance,able to manage medications with limited or no assistance,able to manage money with limited or no assistance,able to prepare meals with limited or no assistance, andable to use the phone with limited or no assistance. For falls risk assessment, patient reportsno frequent falls while walking,no fall in the past year, andno dizziness/vertigo. For home safety, patient reportsworking smoke/co detectorsanduse of seatbelts.ROS as noted in the HPI She had a partial large bowel and small bowel resection last year because of an abscess secondary to a perforated diverticula. She has been doing well since then. Lucy Sanches MD [address] [place] [address], [place], [address], [facility] 07/31/2023 13:04:27 4 text/html HyperlipidemiaReported by PatientHPIFor type of hyperlipidemia, patient reportshypercholesterolemia . For duration, patient reportschronic. For risk factors, patient reportshypertension. For control, patient reportsusually well controlledandat goal. For compliance, patient reportscompliant,compliant with diet, andexercises. For complications, patient reportsno coronary artery disease,no peripheral artery disease, andno cardiovascular disease. Hypertension F/UReported by PatientHPIFor associated symptoms, patient reportsno dizziness,no lightheadedness,no chest pain,no shortness of breath,no palpitations,no edema, andno calf pain with exertion. For lifestyle, patient reportsregular exerciseandlimiting/avoidin g salt. For medications, patient reportstaking medications as directedandno side effects from medication. ThyroidReported by PatientStable on meds. Will check TSH level. Lucy Sanches MD [address] [facility] [address], [place], [address], [facility] 01/13/2024 13:03:29 5 text/html has h/o intermittent hem., but current one bothering for past ~ 5 monthshas used otc cream, wipes c little helpno straining /constipationno h/o sx on hemno anal pain, more so discomfort/mucous Holden Moreira PA-C [address] [facility] [address], [place], [address], [facility] 09/21/2024 09:56:50 5 text/html Medicare Annual Wellness VisitReported by PatientSocial/Behavioral HistoryFor fracture risk, patient reportshistory of fractures (collar bone as a child)but reportsno previous musculoskeletal injuries. For diet and nutrition, patient reportshealthy dietanddiscussed maintaining calcium balance. For physical activity, patient reportsexercises on a regular basis,good physical condition, anddiscussed exercise habits.Mental Status:For depression risk, patient reportshistory of depressionbut reportsnever feels sad, empty, or tearful,no loss of interest in activities,no significant changes in weight,no sleep disturbances or insomnia, andno loss of energy. For orientation, patient reportsno disorientation to time,no disorientation to date, andno disorientation to place. For concentration and memory, patient reportsno decreased concentrating ability,no memory lapses or loss, anddoes not forget words. For speech/motor difficulties, patient reportsno speech difficultiesanddoes not knock things over when trying to pick them up.Functional AbilityFor hearing, patient reportswears hearing aids. For vision, patient reportsno vision problems. For activities of daily living, patient reportsable to bathe with limited or no assistance,able to contol urination and bowels,able to dress with limited or no assistance,able to feed self with limited or no assistance,able to get out of chair or bed with limited or no assistance,able to groom with limited or no assistance, andable to toilet with limited or no assistance. For instrumental activities of daily living, patient reportsable to do house work with limited or no assistance,able to grocery shop with limited or no assistance,able to manage medications with limited or no assistance,able to manage money with limited or no assistance,able to prepare meals with limited or no assistance, andable to use the phone with limited or no assistance. For falls risk assessment, patient reportsno frequent falls while walking,no fall in the past year, andno dizziness/vertigo. For home safety, patient reportsworking smoke/co detectorsanduse of seatbelts.ROS as noted in the HPI She had a partial large bowel and small bowel resection last year because of an abscess secondary to a perforated diverticula. She has been doing well since then. Lucy Sanches MD [address] [place] [address], [place], [address], [facility] 12/28/2024 17:51:32 OBGyn Episode No OBEpisode recorded.
--- OUTSIDE RECORDS SUMMARY | 2025-01-17 09:51 | XMS_ITS | Clinical Summary ---
Author Organization [facility] 299 [facility] Address [address] [place] [address] Phone Care Team Providers Care Worship Pastor Name Role Phone Manpreet Sanches MD Primary Care Provider Allergies Active Allergy Reactions Criticality Noted Date Comments Hydrochlorothiazide 12/30/2024 Medications atenoloL-chlorth alidone (TENORETIC) 50-25 mg per tablet Take 1 tablet by mouth 1 (one) time each day. Active lisinopril-hydro CHLOROthiazide (PRINZIDE,ZESTOR ETIC) 20-12.5 mg per tablet Take 1 tablet by mouth 1 (one) time each day. Active glucosamine/barber dr leydi Trinidad sod (OSTEO BI-FLEX ORAL) Take by mouth. Active lactobacillus combination no.4 (Probiotic) 3 billion cell capsule Take by mouth. Active coenzyme Q-10 100 mg capsule Take 1 capsule (100 mg total) by mouth 1 (one) time each day. Active calcium carbonate-vitami n D 500 mg-5 mcg (200 unit) per tablet Take 1 tablet by mouth 1 (one) time each day. Active levothyroxine sodium (TIROSINT) 25 mcg capsule Take 1 capsule (25 mcg total) by mouth 1 (one) time each day. Active amLODIPine-atorv astatin (CADUET) 5-10 mg per tablet Take 1 tablet by mouth 1 (one) time each day. Active atorvastatin (LIPITOR) 40 mg tablet Take 1 tablet (40 mg total) by mouth at bedtime. Active Encounters Date Type Department Care Team Description 12/30/2024 Telephone Gastroenterology - 299 [facility] [address] [address] Salina Whitman MD from Last 3 Months Social History Tobacco Use Types Packs/Day Years Used Date Smoking Tobacco: Never Assessed Comments Unknown Sex and Gender Information Value Date Recorded Sex Assigned at Not on file Legal Sex Female 1:56 AM EST Gender Identity Not on file Sexual Orientation Not on file Plan of Treatment Health Maintenance Due Date Last Done Comments Breast Cancer Screening 1960 DTaP,Tdap,and Td Vaccines (1 - Tdap) 1977 Pneumococcal Vaccine: 50+ Years (1 of 1 - PCV) 2008 Zoster Vaccines (1 of 2) 2008 Depression Screening 03/10/2024 COVID-19 Vaccine (1 - 2023-2 5 season) 2024 Influenza Vaccine (#1) 2024 Falls Risk Assessment 12/30/2024 Hepatitis C Screening 12/30/2024 Medicare Annual Wellness Visit 12/30/2024 Osteoporosis Screening (Bone Density Screening) 12/30/2024 Social Influencers of Health Screening 12/30/2024 RSV Immunization Adult Patients (1 - 1-dose 75+ series) 2033 Colorectal Cancer Screening: Colonoscopy 12/31/2034 12/31/2024, 12/31/2024 HIB Vaccines Aged Out No longer eligi ble based on patient's age to complete this topic HPV Vaccines Aged Out No longer eligi ble based on patient's age to complete this topic Hepatitis A Vaccines Aged Out No long er eligible based on patient's age to complete this topic Hepatitis B Vaccines Aged Out No long er eligible based on patient's age to complete this topic IPV Vaccines Aged Out No longer eligi ble based on patient's age to complete this topic MMR Vaccines Aged Out No longer eligi ble based on patient's age to complete this topic Meningococcal ACWY Vaccine Aged Out N o longer eligible based on patient's age to complete this topic Meningococcal B Vaccine Aged Out No l onger eligible based on patient's age to complete this topic RSV Immunization Patients Under 20 months Aged Out No longer eligible b ased on patient's age to complete this topic Varicella Vaccines Aged Out No longer eligible based on patient's age to complete this topic Procedures Procedure Name Priority Date/Time Associated Diagnosis Comments COLONOSCOPY Routine 12/31/2024 9:46 AM EDT COLONOSCOPY Routine 12/31/2024 9:45 AM EDT from Last 3 Months Results * COLONOSCOPY (12/31/2024 9:46 AM EDT) Only the most recent of2 resultswithin the time period is included. Anatomical Region Laterality Modality Endoscopy us Historical Provider GI~PROCEDURE ORDERABLES F inal Result from Last 3 Months Insurance [address]IC[facility] Care Teams Worship Pastor Relationship Specialty Start Date End Date Manpreet Sanches MD [address] [facility] [address] [place], [place] PCP - General Internal Medicine 12/30/24
== END 2025-01-17 09:14 | disposition home or self-care (01) ==
LOC: HO.HMGAL 09:08
PROVIDERS: PCP Internal Medicine; Visit Provider Registered Nurse Emergency
DX: J30.89 Other allergic rhinitis (principal)
CPT/HCPCS: 95117; 95165

== ENCOUNTER 2025-02-14 12:38 | Outpatient (AMB) | payer MEDICARE, SELFPAY | END 2025-02-14 12:38 | disposition home or self-care (01) | LOC: HO.HMGAL 12:38 | PROVIDERS: PCP Internal Medicine; Visit Provider Registered Nurse Emergency | DX: J30.89 Other allergic rhinitis (principal) | CPT/HCPCS: 95117; 95165 ==